=== PATIENT | female | born 1960 | race Caucasian/White ===

== ENCOUNTER 2022-02-26 17:38 | Emergency (ER) | payer OTHER ==
[2022-02-26] MEDS ORDERED: LORAZEPAM 2 MG/ML 1 ML VIAL IM ONE (18:30)
[2022-02-26] MEDS ORDERED: HALOPERIDOL INJ 5 MG/ML VIAL IM SCH (18:30)
[2022-02-26 18:32] LABS: BASOPHILS % (AUTO) 1.3 % (0.0-5.0); EOSINOPHILS % (AUTO) 3.5 % (0.0-8.0); LYMPHOCYTES % (AUTO) 26.6 % (21.0-51.0); MEAN CORPUSCULAR HEMOGLOBIN 32.6 pg (27.0-33.0); MEAN CORPUSCULAR HGB CONC 36.1 g/dL (32.0-36.0); MEAN CORPUSCULAR VOLUME 90.4 fL (79-99); MONOCYTES % (AUTO) 10.4 % (3.0-13.0); PLATELET COUNT (AUTO) 98 K/uL (130-400); RED BLOOD CELL COUNT(AUTO) 5.09 MIL/uL (4.00-5.50); RED CELL DISTRIBUTION WIDTH 14.4 % (11.0-15.5); WHITE BLOOD COUNT (AUTO) 4.6 K/uL (4.8-10.8)
[2022-02-26 18:34] LABS: APPEARANCE,URINE Cloudy (CLEAR); BILIRUBIN,URINE Small (NEGATIVE); COLOR,URINE Dark Yellow (YELLOW); GLUCOSE, URINE (UA) Negative (NEGATIVE); KETONES,URINE Trace mg/dL (NEGATIVE); LEUKOCYTE ESTERASE ,URINE Trace (NEGATIVE); NITRATE,URINE Negative (NEGATIVE); OCCULT BLOOD,URINE Negative (NEGATIVE); PH,URINE 5.5 (5.0-8.0); PROTEIN,URINE Negative (NEGATIVE)
[2022-02-26 18:41] LABS: CARBON DIOXIDE 22 mmol/L (21-32); CHLORIDE 105 mmol/L (101-111); CREATININE 0.9 mg/dL (0.5-1.5); GLOMERULAR FILTR. RATE CALC 67 mL/min (>60); GLUCOSE,RANDOM 115 mg/dL (70-105); POTASSIUM 4.2 mmol/L (3.5-5.1); SODIUM SERUM 137 mmol/L (136-145); UREA NITROGEN, BLOOD 14 mg/dL (7-18)
[2022-02-26 18:43] LABS: AMPHET/METH SCREEN,URINE NEGATIVE (NEGATIVE); BARBITURATE SCREEN, URINE NEGATIVE (NEGATIVE); BENZODIAZEPINES SCREEN,URINE NEGATIVE (NEGATIVE); CANNABINOID SCREEN,URINE POSITIVE (NEGATIVE); COCAINE SCREEN,URINE NEGATIVE (NEGATIVE); OPIATE SCREEN,URINE NEGATIVE (NEGATIVE); PHENCYCLIDINE SCREEN,URINE NEGATIVE (NEGATIVE)
[2022-02-26 18:45] LABS: ALANINE AMINOTRANSFERASE 27 U/L (12-78); ALBUMIN 3.2 g/dL (3.5-5.0); ASPARTATE AMINOTRANSFERASE 43 U/L (10-37); CREATINE KINASE, TOTAL 183 U/L (21-232); TOTAL PROTEIN, SERUM 7.2 g/dL (6.0-8.3)
[2022-02-26 18:48] LABS: ACETAMINOPHEN < 1 mcg/mL (10-30); ALCOHOL, BLOOD < 3 mg/dL (0-10); SALICYLATE < 2.8 mg/dL (2.8-20.0)
[2022-02-26 19:12] LABS: BACTERIA,URINE Few /HPF (None Seen); MUCUS,URINE Moderate LPF (None Seen); RBC,URINE 0-1 /HPF (0-1); SQUAMOUS EPITHELIAL CELL,UR Moderate /HPF (0-2)
[2022-02-27 08:00] VITALS: BP 129/79
== END 2022-02-27 12:30 | disposition home or self-care (01) ==
LOC: EDH 17:38
DX: F20.9 Schizophrenia, unspecified (principal); F31.9 Bipolar disorder, unspecified; F91.9 Conduct disorder, unspecified; Z20.822 Contact with and (suspected) exposure to COVID-19
CPT/HCPCS: 99284; 87635; 82550; 80053; 80305; 85025; 36415; 96372 ×2; 81001; G0481; C9803; J1630; J2060

== ENCOUNTER 2022-03-07 11:51 | Inpatient (IN) | payer OTHER ==
[~2022-03-07] VITALS: Ht 167.6 cm; Wt 81.6 kg
[2022-03-07 12:08] VITALS: BP 113/43
[2022-03-07 12:44] LABS: APPEARANCE,URINE CLOUDY (CLEAR); BASOPHILS % (AUTO) 1.1 % (0.0-5.0); BILIRUBIN,URINE NEGATIVE (NEGATIVE); COLOR,URINE YELLOW (YELLOW); EOSINOPHILS % (AUTO) 3.4 % (0.0-8.0); GLUCOSE, URINE (UA) NEGATIVE (NEGATIVE); HEMATOCRIT 41.3 % (36-48); KETONES,URINE NEGATIVE (NEGATIVE); LEUKOCYTE ESTERASE ,URINE MODERATE (NEGATIVE); LYMPHOCYTES % (AUTO) 21.5 % (21.0-51.0); MEAN CORPUSCULAR HGB CONC 36.1 g/dL (32.0-36.0); MEAN CORPUSCULAR VOLUME 91.6 fL (79-99); MONOCYTES % (AUTO) 10.3 % (3.0-13.0); NEUTROPHILS % (AUTO) 63.5 % (40.0-77.0); NITRATE,URINE POSITIVE (NEGATIVE); OCCULT BLOOD,URINE TRACE-INTACT (NEGATIVE); PH,URINE 6.5 (5.0-8.0); PLATELET COUNT (AUTO) 95 K/uL (130-400); PROTEIN,URINE TRACE mg/dL (NEGATIVE); RED BLOOD CELL COUNT(AUTO) 4.51 MIL/uL (4.00-5.50); RED CELL DISTRIBUTION WIDTH 14.8 % (11.0-15.5); WHITE BLOOD COUNT (AUTO) 4.4 K/uL (4.8-10.8)
[2022-03-07 12:53] LABS: AMPHET/METH SCREEN,URINE NEGATIVE (NEGATIVE); BARBITURATE SCREEN, URINE NEGATIVE (NEGATIVE); BENZODIAZEPINES SCREEN,URINE NEGATIVE (NEGATIVE); CANNABINOID SCREEN,URINE POSITIVE (NEGATIVE); COCAINE SCREEN,URINE NEGATIVE (NEGATIVE); PHENCYCLIDINE SCREEN,URINE NEGATIVE (NEGATIVE)
[2022-03-07 12:55] LABS: POTASSIUM 4.2 mmol/L (3.5-5.1)
[2022-03-07 12:58] LABS: ALBUMIN 2.8 g/dL (3.5-5.0); TOTAL PROTEIN, SERUM 6.3 g/dL (6.0-8.3)
[2022-03-07 13:01] LABS: BACTERIA,URINE Moderate /HPF (None Seen); MUCUS,URINE Few LPF (None Seen); RBC,URINE 0-1 /HPF (0-1); SQUAMOUS EPITHELIAL CELL,UR 0-2 /HPF (0-2); WBC,URINE 26-50 /HPF (0-1)
[2022-03-07] MEDS ORDERED: LACTULOSE 20 GM/30 ML UDCUP PO ONE (13:30)
[2022-03-07] MEDS ORDERED: ACETAMINOPHEN 325 MG TAB PO PRN ×2 (17:00)
[2022-03-07] MEDS ORDERED: ONDANSETRON 4MG INJ IV PRN (17:00)
[2022-03-07] MEDS ORDERED: HYDR-3422 PO (17:12)
[2022-03-07] MEDS ORDERED: MAG30ORA PO (17:12)
[2022-03-07] MEDS ORDERED: ACET650O3 PO (17:12)
[2022-03-07] MEDS ORDERED: BENZ1LOZ81 MM (17:12)
[2022-03-07] MEDS ORDERED: [UNRECOGNIZED DRUG - CODE] TP (17:12)
[2022-03-07] MEDS ORDERED: CARMEX TP (17:12)
[2022-03-07] MEDS ORDERED: DONE5TAB33 PO (17:12)
[2022-03-07] MEDS ORDERED: VITA-164 PO (17:12)
[2022-03-07] MEDS ORDERED: OLAN7.5T18 PO (17:12)
[2022-03-07] MEDS ORDERED: SITA50TA PO (17:12)
[2022-03-07] MEDS ORDERED: ZOLP5TAB8 PO (17:12)
[2022-03-07] MEDS ORDERED: LOSA50TA64 PO (17:12)
[2022-03-07] MEDS ORDERED: LORA-192 PO (17:12)
[2022-03-07] MEDS ORDERED: RIFA550T PO (17:12)
[2022-03-07] MEDS ORDERED: LOPE2CAP PO (17:12)
[2022-03-07] MEDS ORDERED: ONDA4TAB10 PO (17:12)
[2022-03-07] MEDS ORDERED: LACT10SO9 PO (17:12)
[2022-03-07] MEDS ORDERED: CEFTRIAXONE 1G VIAL IVP SCH (17:30)
[2022-03-07 17:42] LABS: HEMOGLOBIN A1C 5.7 % (4.0-6.0)
[2022-03-07] MEDS ORDERED: LORAZEPAM 1 MG TABLET PO STA (17:46)
[2022-03-07] MEDS ORDERED: LORAZEPAM 1 MG TABLET ONE (17:48)
[2022-03-07] MEDS ORDERED: AMOX/CLAV 500/125MG TAB PO SCH (18:00)
[2022-03-07] MEDS ORDERED: HYDROXYZINE 25 MG TABLET PO PRN (18:00)
[2022-03-07] MEDS ORDERED: LORAZEPAM 1 MG TABLET PO PRN (18:00)
[2022-03-07] MEDS ORDERED: METRONIDAZOLE 500 MG TABLET PO SCH (21:00)
[2022-03-07] MEDS ORDERED: ZOLPIDEM TARTRATE 5 MG TAB PO SCH (21:00)
[2022-03-07] MEDS ORDERED: LACTULOSE 20 GM/30 ML UDCUP PO SCH ×2 (21:00)
[2022-03-07] MEDS ORDERED: OLANZAPINE 5 MG TAB PO SCH (21:00)
[2022-03-07] MEDS ORDERED: INSULIN HUMULIN R 100 UNIT/ML 3ML SQ SCH (21:00)
[2022-03-07] MEDS ORDERED: DONEPEZIL HCL 5 MG TAB PO SCH (21:00)
[2022-03-07] MEDS ORDERED: RIFAXIMIN 550 MG TABLET PO SCH (21:00)
[2022-03-08 04:11] LABS: HEPATITIS A IGM ANTIBODY Non-Reactive (Nonreactive); HEPATITIS B CORE IGM ANTIBODY Non-Reactive (Negative); HEPATITIS B SURFACE ANTIGEN Non-Reactive (Nonreactive); HEPATITIS C ANTIBODY Non-Reactive (Nonreactive)
[2022-03-08] MEDS ORDERED: LOSARTAN 50 MG TABLET PO SCH (09:00)
[2022-03-08] MEDS ORDERED: ZINC SULFATE 220 CAPSULE PO SCH (09:00)
[2022-03-09 13:13] LABS: OPIATES SCREEN URINE Negative ng/mL (Cutoff=300)
== END 2022-03-07 18:38 | disposition left against medical advice (07) | DRG 441 ==
LOC: EDH 11:51 → EDHIP 16:59
PROVIDERS: ADMIT Hospitalist; ATTEND Hospitalist
DX: K72.90 Hepatic failure, unspecified without coma (principal); E43 Unspecified severe protein-calorie malnutrition; D69.6 Thrombocytopenia, unspecified; K74.60 Unspecified cirrhosis of liver; E11.9 Type 2 diabetes mellitus without complications; F20.9 Schizophrenia, unspecified; Z53.29 Procedure and treatment not carried out because of patient's decision for other reasons; F31.9 Bipolar disorder, unspecified; Z79.84 Long term (current) use of oral hypoglycemic drugs; Z68.29 Body mass index [BMI] 29.0-29.9, adult
CPT/HCPCS: 36415; 80053; 80074; 80305; 81001; 82140; 82550; 83036; 85025; 87077; 87088; 87186; G0378